=== PATIENT | female | born 1985 | race Hispanic/Latino ===

== ENCOUNTER 2019-07-15 10:27 | Emergency (ER) | payer OTHER ==
[2019-07-15] MEDS ORDERED: ACETAMINOPHEN 500 MG TAB ONE (11:42)
[2019-07-15 12:12] LABS: Absolute Lymphocytes (CBC) 1.9 K/uL (0.7-4.9); Basophils % 0.4 % (0-1.3); Hematocrit 32.5 % (36.0-45.0); Lymphocytes % 25.9 % (15.3-44.8); MPV 8.9 fL (7.6-11.3); RBC Red Blood Cell Count 3.71 M/uL (3.86-4.86)
[2019-07-15 12:19] LABS: ALT/SGPT 14 U/L (12-78); AST/SGOT 15 U/L (15-37); Albumin 2.9 g/dL (3.4-5.0); Alkaline Phosphatase 44 U/L (45-117); BUN Blood Urea Nitrogen 5 mg/dL (7-18); Bicarbonate 25 mmol/L (21-32); Bilirubin Direct < 0.1 mg/dL (0-0.2); Bilirubin Total 0.4 mg/dL (0.2-1.0); Glucose Level 77 mg/dL (74-106); Magnesium 2.2 mg/dL (1.8-2.4); Potassium 3.7 mmol/L (3.5-5.1); Protein, Total 7.5 g/dL (6.4-8.2); Sodium Level 138 mmol/L (136-145)
--- NOTE | 2019-07-15 12:19 | EKG ---
Test Date: 2019-07-15 Test Time: 10:51:14 Director Behavioral Health: MARLEN MEASUREMENT RESULTS: Intervals: Rate: 68 FL: 130 QRSD: 94 QT: 380 QTc: 404 [place]: P: -11 FL: 130 QRS: 20 T: -1 INTERPRETIVE STATEMENTS: Normal sinus rhythm Normal ECG No previous ECG available for comparison Electronically Signed On 07-15-19 12:19:07 PROGRAM COUNSELOR by Bj Caraballo
--- NOTE | 2019-07-15 12:28 | RAD REPORT ---
EXAM DESCRIPTION: RAD - Chest Single View - 07/15/2019 11:49 am CLINICAL HISTORY: Left-sided chest pain COMPARISON: None. TECHNIQUE: AP portable chest image was obtained 1143 hours . FINDINGS: Lungs are clear. Heart and vasculature are normal. No measurable pleural effusion and no p neumothorax. No acute bony abnormality seen. No acute aortic findings suspected. IMPRESSION: No acute cardiopulmonary process.
[2019-07-15 13:03] LABS: Urine Blood NEGATIVE (NEG); Urine Glucose NEGATIVE (NEG); Urine Protein NEGATIVE (NEG); Urine Specific Gravity 1.015 (1.005-1.030)
[2019-07-15 13:09] LABS: Urine Bacteria 20-50 /HPF (<20); Urine Culture Reflex Order REFLEXED; Urine RBC <5 /HPF (NONE SEEN)
--- NOTE | 2019-07-15 13:31 | ER ---
Nurse's Notes [facility] Name: Amalia Rabago Age: 33 yrs Sex: Female : 1985 Arrival Date: 07/15/2019 Time: 10:30 Bed 18 Private MD: Diagnosis: Chest pain, unspecified Presentation: 07/15 10:32 Presenting complaint: Left sided chest pain that radiates to left upper back and hb shoulder, nausea, and SOB that woke her up from sleep today at 0200. Pain becomes worse and sharp in quality with deep inhalation and with movement. Pt also reports she is 24 weeks , DELANEY 10/29/19. Transition of care: patient was not received from another setting of care. Onset of symptoms was July 15, 2019. Risk Assessment: Do you want to hurt yourself or someone else? Patient reports no desire to harm self or others. Initial Sepsis Screen: Does the patient meet any 2 criteria? No. Patient's initial sepsis screen is negative. Does the patient have a suspected source of infection? Yes:. Care prior to arrival: None. 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 - Social history:: Smoking status: Patient/guardian denies using tobacco. - Ebola Screening: : No symptoms or risks identified at this time. - Family history:: not pertinent. - Hospitalizations: : No recent hospitalization is reported. Screenin:46 Abuse screen: Denies threats or abuse. Denies injuries from another. Nutritional ca1 screening: No deficits noted. Tuberculosis screening: No symptoms or risk factors identified. Fall Risk None identified. Assessment: 10:46 General: Appears in no apparent distress. comfortable, Behavior is calm, cooperative, ca1 appropriate for age, Denies feeling ill. Pain: Complains of pain in anterior aspect of left upper chest Pain radiates to left subscapular area and left arm Pain currently is 6 out of 10 on a pain scale. at worst was 10 out of 10 on a pain scale. Quality of pain is described as sharp, shooting, Pain began 0200 today Is continuous, Also complains of shortness of breath. Neuro: Level of Consciousness is awake, alert, obeys commands, Oriented to person, place, time, situation, Appropriate for age. Cardiovascular: Heart tones S1 S2 present Capillary refill < 3 seconds Patient's skin is warm and dry. Rhythm is sinus rhythm. Respiratory: Reports shortness of breath on exertion Airway is patent Respiratory effort is even, unlabored, Respiratory pattern is regular, symmetrical, Breath sounds are clear bilaterally. Denies cough. GI: Abdomen is round non-distended, Bowel sounds present X 4 quads. Abd is soft and non tender X 4 quads. : No deficits noted. No signs and/or symptoms were reported regarding the genitourinary system. EENT: No deficits noted. No signs and/or symptoms were reported regarding the EENT system. Derm: Skin is intact, is healthy with good turgor, Skin is pink, warm \T\ dry. Musculoskeletal: Circulation, motion, and sensation intact. Capillary refill < 3 seconds, Range of motion: intact in all extremities. 11:38 Reassessment: Patient appears in no apparent distress at this time. Patient and/or ca1 family updated on plan of care and expected duration. Pain level reassessed. Patient is alert, oriented x 3, equal unlabored respirations, skin warm/dry/pink. 13:12 Reassessment: Patient appears in no apparent distress at this time. Patient and/or ca1 family updated on plan of care and expected duration. Pain level reassessed. Patient is alert, oriented x 3, equal unlabored respirations, skin warm/dry/pink. Vital Signs: 10:35 BP 134 / 75; Pulse 84; Resp 16; Temp 98.2; Pulse Ox 100% ; Weight 111.58 kg; Height 5 hb ft. 7 in. (170.18 cm); Pain 10/10; 11:38 BP 116 / 76; Pulse 83; Resp 16 S; Pulse Ox 100% on R/A; ca1 12:24 BP 100 / 63; Pulse 72; Resp 17 S; Pulse Ox 100% on R/A; ca1 13:29 BP 101 / 65; Pulse 72; Resp 16 S; Pulse Ox 100% on R/A; ca1 10:35 Body Mass Index 38.53 (111.58 kg, 170.18 cm) ED Course: 10:30 Patient arrived in ED. mr 10:34 Triage completed. hb 10:35 Arm band placed on. hb 10:41 Alma Delia Ravi, RN is Primary Nurse. ca1 10:46 Patient has correct armband on for positive identification. Bed in low position. Call ca1 light in reach. Side rails up X 1. monitoring tech on. Pulse ox on. NIBP on. Warm blanket given. 10:46 Patient maintains SpO2 saturation greater than 95% on room air. ca1 10:55 EKG done, by plant technical specialist. reviewed by Tim Fraga MD. at1 11:10 John Cordova MD is Attending Physician. wa 11:30 Missed attempt(s): 20 gauge in right antecubital area. Bleeding controlled, band aid ca1 applied, catheter tip intact. 11:51 XRAY Chest (1 view) In Process Unspecified. EDMS 11:52 Initial lab(s) drawn, by me, sent to lab. Inserted saline lock: 22 gauge in right em1 forearm, using aseptic technique. Blood collected. 13:30 No provider procedures requiring assistance completed. IV discontinued, intact, ca1 bleeding controlled, No redness/swelling at site. Pressure dressing applied. Administered Medications: 11:44 Drug: Tylenol 1000 mg Route: PO; ca1 13:13 Follow up: Response: No adverse reaction; Pain is decreased ca1 Outcome: 13:30 Discharge ordered by . wa 13:35 Discharged to home ambulatory, with family. ca1 13:35 Condition: stable 13:35 Discharge instructions given to patient, Instructed on discharge instructions, follow up and referral plans. Demonstrated understanding of instructions, follow-up care. 13:35 Patient left the ED. ca1 Signatures: Dispatcher [employer] EDMS Sharon Goyal, Christ em1 Andie Ryan, professional skater EKG Tat1 Elisabeth Chong RN RN John Cordova MD MD wa Acob, Cheryl, RN RN ca1 Corrections: (The following items were deleted from the chart) 10:39 10:32 Presenting complaint: Left sided chest pain that radiates to left upper back and hb shoulder, nausea, and SOB that woke her up from sleep today at 0200. Pain becomes worse and sharp in quality with deep inhalation and with movement. Pt also reports she is 24 weeks , DELANEY 10/29/19. hb 11:45 10:46 Cardiovascular: Heart tones S1 S2 present Capillary refill < 3 seconds Patient's ca1 skin is warm and dry. ca1 13:29 11:38 Pulse 83bpm; Resp 16bpm; Spontaneous; Pulse Ox 100% RA; ca1 ca1
--- NOTE | 2019-07-15 13:31 | EDPHYS ---
Physician Documentation [facility] Name: Amalia Rabago Age: 33 yrs Sex: Female : 1985 Arrival Date: 07/15/2019 Time: 10:30 Bed 18 Private MD: ED Physician John Cordova HPI: 07/15 11:36 This 33 yrs old Female presents to ER via Ambulatory with complaints of 24 wks wa , Chest Pain. 11:36 The patient or guardian reports chest pain that is located primarily in the left wa clavicle and anterior aspect of left upper chest. The pain radiates to the left arm, the left shoulder, the left scapula. Associated signs and symptoms: Pertinent positives: numbness to level of L elbow. tingling to the level of the fingers, Pertinent negatives: cough, palpitations, shortness of breath, denies SOB to me on direct query. The chest pain is described as aching. Duration: The patient or guardian reports a single episode, that is still ongoing, and unchanged. Modifying factors: The symptoms are alleviated by nothing. the symptoms are aggravated by movement, palpation. Severity of pain: At its worst the pain was moderate in the emergency department the pain is unchanged. The patient has not experienced similar symptoms in the past. The patient has not recently seen a physician. pt is 24 weeks . ASSOCIATE PROFESSOR OF HISTORY: 10:49 LMP 01/22/2019 ca1 Historical: - Allergies: 10:35 No Known Allergies; hb - Home Meds: 10:35 Vitamin Oral tab 1 tab once daily [Active]; hb - PMHx: 10:35 None; hb - PSHx: 10:35 None; hb - Immunization history:: Adult Immunizations up to date. - Social history:: Smoking status: Patient/guardian denies using tobacco. - Ebola Screening: : No symptoms or risks identified at this time. - Family history:: not pertinent. - Hospitalizations: : No recent hospitalization is reported. ROS: 11:41 Constitutional: Negative for fever, chills, and weight loss, Eyes: Negative for injury, wa pain, redness, and discharge, ENT: Negative for injury, pain, and discharge, Neck: Negative for injury, pain, and swelling, Respiratory: Negative for shortness of breath, cough, wheezing, and pleuritic chest pain, Abdomen/GI: Negative for abdominal pain, nausea, vomiting, diarrhea, and constipation, Back: Negative for injury and pain, : Negative for injury, bleeding, discharge, and swelling, Skin: Negative for injury, rash, and discoloration, Psych: Negative for depression, anxiety, suicide ideation, homicidal ideation, and hallucinations. 11:41 Cardiovascular: Positive for chest pain, with movement, Negative for edema, orthopnea, palpitations. 11:41 Respiratory: Negative for cough, shortness of breath. 11:41 MS/extremity: Positive for paresthesias, tingling, of the left arm. 11:41 Neuro: Positive for numbness, of the left arm. 11:41 All other systems are negative. Exam: 11:42 Constitutional: This is a well developed, well nourished patient who is awake, alert, wa and in no acute distress. Head/Face: Normocephalic, atraumatic. Eyes: Pupils equal round and reactive to light, extra-ocular motions intact. Lids and lashes normal. Conjunctiva and sclera are non-icteric and not injected. Cornea within normal limits. Periorbital areas with no swelling, redness, or edema. ENT: Nares patent. No nasal discharge, no septal abnormalities noted. Tympanic membranes are normal and external auditory canals are clear. Oropharynx with no redness, swelling, or masses, exudates, or evidence of obstruction, uvula midline. Mucous membranes moist. Neck: Trachea midline, no thyromegaly or masses palpated, and no cervical lymphadenopathy. Supple, full range of motion without nuchal rigidity, or vertebral point tenderness. No Meningismus. Chest/axilla: Normal chest wall appearance and motion. Nontender with no deformity. No lesions are appreciated. Cardiovascular: Regular rate and rhythm with a normal S1 and S2. No gallops, murmurs, or rubs. Normal PMI, no JVD. No pulse deficits. Respiratory: Lungs have equal breath sounds bilaterally, clear to auscultation and percussion. No rales, rhonchi or wheezes noted. No increased work of breathing, no retractions or nasal flaring. Back: No spinal tenderness. No costovertebral tenderness. Full range of motion. Skin: Warm, dry with normal turgor. Normal color with no rashes, no lesions, and no evidence of cellulitis. Neuro: Awake and alert, GCS 15, oriented to person, place, time, and situation. Cranial nerves II-XII grossly intact. Motor strength 5/5 in all extremities. Sensory grossly intact. Cerebellar exam normal. Normal gait. Psych: Awake, alert, with orientation to person, place and time. Behavior, mood, and affect are within normal limits. 11:42 Musculoskeletal/extremity: Extremities: grossly normal except: noted in the left posterior upper chest wall: pain, tenderness, noted in the left subscapular area and shoulder: Vital Signs: 10:35 BP 134 / 75; Pulse 84; Resp 16; Temp 98.2; Pulse Ox 100% ; Weight 111.58 kg; Height 5 hb ft. 7 in. (170.18 cm); Pain 10/10; 11:38 BP 116 / 76; Pulse 83; Resp 16 S; Pulse Ox 100% on R/A; ca1 12:24 BP 100 / 63; Pulse 72; Resp 17 S; Pulse Ox 100% on R/A; ca1 13:29 BP 101 / 65; Pulse 72; Resp 16 S; Pulse Ox 100% on R/A; ca1 10:35 Body Mass Index 38.53 (111.58 kg, 170.18 cm) hb MDM: 11:10 Patient medically screened. wa 11:44 Differential diagnosis: completely reproducible pain. nmlr HR. will check EKG and CXR. wa tylenol for pain. radiculopathy? unlikely ACS. 13:28 Data reviewed: vital signs, nurses notes, lab test result(s), EKG, radiologic studies. wa Test interpretation: by ED physician or midlevel provider: EKG: HR 68. sinus. nml axis. no noted zonal ischemia or disrythmia. nml CXR. labs noted for mild anemia, otherwise wnl. . Response to treatment: the patient's symptoms have markedly improved after treatment. ED course: pt has appt with her doctor today. will d/c with close f/u. 07/15 11:23 Order name: Basic Metabolic Panel; Complete Time: 13:23 07/15 11:23 Order name: CBC with Diff; Complete Time: 13:23 07/15 11:23 Order name: LFT's; Complete Time: 13:23 07/15 11: Order name: Magnesium; Complete Time: 13:24 05 11:23 Order name: Urine Microscopic Only; Complete Time: 13:23 ks 07/15 12:57 Order name: Urine Dipstick--Ancillary (enter results); Complete Time: 13:23 07/15 11:05 Order name: EKG; Complete Time: 11:06 [facility] 07/15 11:05 Order name: EKG - Nurse/Tech; Complete Time: 11:05 ca1 07/15 11:23 Order name: XRAY Chest (1 view); Complete Time: 13:24 ks 07/15 11:23 Order name: Cardiac monitoring; Complete Time: 11:27 ks 07/15 11:23 Order name: IV Saline Lock; Complete Time: 11:54 ks 07/15 12:57 Order name: Urine --Ancillary (enter results); Complete Time: 13:23 07/15 13:14 Order name: Urine Culture [facility] 07/15 11:23 Order name: Labs collected and sent; Complete Time: 11:54 ks 07/15 11:23 Order name: O2 Sat Monitoring; Complete Time: 11:27 ks 07/15 11:23 Order name: Urine Dipstick-Ancillary (obtain specimen); Complete Time: 12:56 ks Administered Medications: 11:44 Drug: Tylenol 1000 mg Route: PO; ca1 13:13 Follow up: Response: No adverse reaction; Pain is decreased ca1 Disposition: 07/15/19 13:30 Discharged to Home. Impression: Chest pain, unspecified. - Condition is Stable. - Discharge Instructions: Nonspecific Chest Pain, Main-ja-Ozep. - Medication Reconciliation Form, Thank You Letter, Antibiotic Education, Prescription Opioid Use form. - Follow up: Private Physician; When: Today; Reason: Recheck today's complaints. - Problem is new. - Symptoms have improved. - Notes: take tylenol for pain as needed as discussed. return to ER for shortness of breath, worsening chest pain, especially if related to exertion, leg swelling or any other worrisome concerns you may have. do tell your doctor about your symptoms and what has been done in the ER today at your visit with her Signatures: Dispatcher Angela EDWY Elisabeth Chong RN RN John Cordova MD MD ks Alma Delia Ravi RN RN ca1 Corrections: (The following items were deleted from the chart) 13:35 13:30 07/15/2019 13:30 Discharged to Home. Impression: Chest pain, unspecified. ca1 Condition is Stable. Forms are Medication Reconciliation Form, Thank You Letter, Antibiotic Education, Prescription Opioid Use. Follow up: Private Physician; When: Today; Reason: Recheck today's complaints. Problem is new. Symptoms have improved. wa
[2019-07-15 13:41] VITALS: TEMP 98.2; O2SAT 100
[2019-07-15 13:45] VITALS: BP 101/65
--- OUTSIDE RECORDS SUMMARY | 2019-07-20 23:15 | XMS REPORT ---
:1985 [facility] Address [address] [place] [address] [address] [place] [address] Care Team Providers Name Role Phone Unavailable Unavailable Unavailable Problems This patient has no known problems. Allergies, Adverse Reactions, Alerts This patient has no known allergies or adverse reactions. Medications This patient has no known medications.
== END 2019-07-15 13:35 | disposition home or self-care (01) ==
LOC: ER 10:27
DX: O26.892 Other specified pregnancy related conditions, second trimester (principal); Z3A.24 24 weeks gestation of pregnancy
CPT/HCPCS: 36415; 71045; 80048; 80076; 81003; 81015; 81025; 83735; 85025; 87086; 87088; 93005; 99285

== ENCOUNTER 2019-10-28 01:34 | Inpatient (IN) | payer OTHER ==
[2019-10-28] MEDS ORDERED: ONDANSETRON 4 MG (ODT) TAB PO PRN (01:59)
[2019-10-28] MEDS ORDERED: IBUPROFEN 200 MG TAB PO PRN (01:59)
[2019-10-28] MEDS ORDERED: CARBOPROST TROME 250 MCG/ML IM PRN (01:59)
[2019-10-28] MEDS ORDERED: METHYLERGONOVINE 0.2MG/ML AMP IM PRN (01:59)
[2019-10-28] MEDS ORDERED: METHYLERGONOVINE 0.2 MG TAB PO PRN (01:59)
[2019-10-28] MEDS ORDERED: ACETAMINOPHEN 500 MG TAB PO PRN (01:59)
[2019-10-28] MEDS ORDERED: OXYTOCIN/LR 20 UNIT/1,000 ML BAG IV SCH ×2 (02:00→03:00)
--- NOTE | 2019-10-28 02:05 | P.BOP ---
Preoperative diagnosis: 39 wk , Postoperative diagnosis: delivered Primary procedure: nonsteril spontaneous delivery in bed Estimated blood loss: 500ml Complications: Other (precipitous delivery) Transferred to: Other (272) Condition: Good
[2019-10-28] MEDS ORDERED: Ringers Lactate 1,000 ML IV PRN (02:24)
[2019-10-28 02:49] LABS: Absolute Lymphocytes (CBC) 1.6 K/uL (0.7-4.9); Basophils % 0.4 % (0-1.3); Hematocrit 34.7 % (36.0-45.0); Lymphocytes % 13.6 % (15.3-44.8); RBC Red Blood Cell Count 3.97 M/uL (3.86-4.86)
[2019-10-28] MEDS ORDERED: Ringers Lactate 1,000 ML IV SCH (03:00)
--- NOTE | 2019-10-28 03:29 | PREOPHP ---
Date of Admission: 10/28/2019 Addendum: Impression: Term with precipitous labor. Patient has been given methargen with vigorous f undal massage to contract and the uterus wall IV being started and lab work being obtained. LACI/JOSEFINA Voice ID: [id number]
--- NOTE | 2019-10-28 03:29 | PREOPHP ---
Date of Admission: 10/28/2019 History Of Present Illness: Ms. Rabago is a 34-year-old female, 3, para 2-0-0-2 at a pproximately 39+ weeks' gestation, who is receiving care through physician in [facility]. She presents to Labor and Delivery completely dilated, contractions starting at about 4 hours previ ously. Past Medical History: 2 prior spontaneous vaginal deliveries without complications. Medications: She is on no medications other vitamins, vitamin D, and iron. Allergies: SHE HAS NO KNOWN ALLERGIES. Social History: She does not smoke. Family History: Noncontributory. Review of Systems: She reports no recent cough, cold, fever, or chills. No recent nausea or vomiting. No breast knots or breast lumps. No bladder problems or vaginal discharge problems. Infant has been active. No rec urrent bouts of diarrhea or constipation. Physical Examination: General: Patient now delivered, female, in no apparent distress. Neck: Supple without adenopathy or thyromegaly. Lungs: Clear. Cardiac: Regular rate and rhythm without murmurs. Breasts: Not examined. Abdomen: Now without organosplenomegaly. Uterus is shun well after Methergine and vigorous f undal massage. Extremities: 1+ lower extremity edema. DICTATION ENDS HERE LACI/JOSEFINA Voice ID: [id number]
[2019-10-28 07:32] VITALS: BMI 43.5
--- NOTE | 2019-10-29 02:28 | DN ---
Surgeon: Michael Castillo MD Ms. Rabago is a 34-year-old female 3, para 2-0-0-2, admitted in [facility] labor. She had a precipitous delivery of a 6 pounds 10 ounces female infant, 9 and 9. C ord was clamped and cut, and the infant attended to. When I arrived at the hospital, placenta with t raction was expelled. Intrauterine exam revealed no retained placental fragments. She was initially given methargen IM. While IV was being started and then dilute solution of Pitocin. Mild atony was noted probably secondary to precipitous delivery and lack of her IV at the time of delivery. She zambrano ffered no lacerations or tears, received no medication during her labor course. It was only later wh en records were received it was noted that she was beta strep positive. Quantitative blood loss was measured at 570 mL. MPG/MODL Voice ID: [id number] Report ID: [id number]
[2019-10-29 07:49] VITALS: BP 116/57; TEMP 97.6
[2019-10-29] MEDS ORDERED: MEASLES,MUMPS,RUBELLA VAC 0.5ML SQVAC ONE (09:10)
[2019-10-29 22:18] LABS: RPR (Rapid Plasma Reagin) NON-REACT (NON-REACT)
--- NOTE | 2019-10-30 00:04 | DS ---
Date of Discharge: 10/29/2019 Final Hospital Discharge Diagnoses: 39 plus week , delivered. Acute blood loss anemia. Complications: Blood loss anemia. Procedures: Precipitous delivery of viable female infant. Hospital Course: The patient is a 34-year-old female, 3, para 2-0-0-2, admitted in rapidly advancing labor, who precipitously delivered a 7 plus pound female . Post delivery was complicated by mild atony with resulting admission hemoglobin and hematocrit of 11.2 /34, dismissal of 28.4 with quantitative blood loss of approximately 570 mL at the time of delivery. She was dismissed to continue taking her iron and vitamins. She is Rh positive blood type. Rubella immune, dismissed with the usual post vaginal delivery activity restrictions to return to her doctor for care. Of note is that apparently on testing she was beta strep positive. She was not informed of this and there was no ability to give her penicillin prophylaxis because she delivered before an IV could be started. Infant will be watched for an additional 24-hour period of time per protocol. LACI/JOSEFINA Voice ID: [id number] Report ID: [id number] VICK
[2019-10-30 19:54] LABS: HBsAG Nonreactive (Nonreactive)
== END 2019-10-29 09:45 | disposition home or self-care (01) | DRG 806 ==
LOC: L&D 01:34 → 2ND-WC 01:56
PROVIDERS: ADMIT Specialist; ATTEND Specialist
PROC: 10E0XZZ Delivery of Products of Conception, External Approach (ICD-10-PCS; principal; 2019-10-28)
DX: O62.3 Precipitate labor (principal); D62 Acute posthemorrhagic anemia; Z37.0 Single live birth; Z3A.39 39 weeks gestation of pregnancy
CPT/HCPCS: 36415; 85014; 85025; 86592; 86850; 86900; 86901; 87340; 90471; 90707; J2210; J2590; J7120